=== PATIENT | male | born 1960 | race Caucasian/White ===

== ENCOUNTER 2022-04-11 08:09 | Outpatient (CLI) | payer OTHER, SELFPAY ==
--- NOTE | ~2022-04-11 | CT_ITS ---
EXAMINATION: CT chest high resolution wo co DATE: 04/11/2022 08:30 INDICATION: lung nodule TECHNIQUE: Computed tomography (CT) of the chest was performed without intravenous contrast. Addition al 3D reconstructions utilizing coronal maximum intensity projection (MIP) were performed. Automated exposure control and iterative reconstruction technique were employed. The dose-length product was 33 0.74 mGy-cm. COMPARISON: None FINDINGS: Mild linear discoid atelectasis at the posterior basilar bilateral lower lobes and more anteriorly at the lingula and right middle lobe. 8 x 3 mm flat lenticular intrafissural lymph node along the right minor fissure. There are a few additional scattered small pulmonary nodules, the largest measuring 5 mm in the right upper lobe on series 4, image 62. No pneumonia, pulmonary edema or pleural effusion. Heart size is normal. Atherosclerotic coronary artery calcification and aortic valve calcification. No pericardial effusion. Small sliding-type hiatal hernia. No pathologically enlarged abdominal or pe lvic lymphadenopathy. Moderate thoracic spondylosis. IMPRESSION: 1. Left hip and 3 mm intrafissural lymph node along the right minor fissure and a few scattered bilat eral small pulmonary nodules the largest measuring 5 mm in the right upper lobe. If the patient is lo w risk for lung cancer, no follow-up is needed. If the patient is high risk (i.e., history of smoking or asbestos or significant radiation exposure), optional follow-up low-dose noncontrast chest CT cou ld be considered at 12 months. Reviewed, dictated and finalized at location A. IMPRESSION: 1. Left hip and 3 mm intrafissural lymph node along the right minor fissure and a few scattered bilateral small pulmonary nodules the largest measuring 5 mm i n the right upper lobe. If the patient is low risk for lung cancer, no follow-u p is needed. If the patient is high risk (i.e., history of smoking or asbestos or significant radiation exposure), optional follow-up low-dose noncontrast korina st CT could be considered at 12 months.
== END 2022-04-11 08:10 | disposition home or self-care (01) ==
PROVIDERS: PCP Physician Assistant; Visit Provider Physician Assistant
DX: R91.8 Other nonspecific abnormal finding of lung field (principal); M47.814 Spondylosis without myelopathy or radiculopathy, thoracic region; I70.0 Atherosclerosis of aorta; K44.9 Diaphragmatic hernia without obstruction or gangrene
CPT/HCPCS: 71250

== ENCOUNTER 2023-04-21 00:54 | Day surgery (SDC) | payer MEDICARE, OTHER, SELFPAY ==
[2023-04-12 11:04] VITALS: BMI 30.4
[2023-04-21 11:35] VITALS: BP 131/84; PULSE 59; RESP 18; TEMP 36.1; O2SAT 98; BMI 29.7
[2023-04-21] MEDS: LACTATED RINGERS 1,000 ML 150 ML IV CONT (11:45)
--- NOTE | 2023-04-21 12:38 | P.HP_ITS ---
History of Present Illness History of Present Illness Consent: Risks, benefits, and alternatives have been discussed and questions answered. Patient agrees to proceed with procedure. Chief complaint: positive cologuard test Narrative: Travis Ponce is a 63 year old male Presents for screening colonoscopy. Patient recently found to have positive Cologuard test. Patient's current weight appetite and bowel movements are normal. He denies abdominal pain. Desmond olivares has had no bleeding. Family history noncontributory. Review of Systems Review of Systems: Review of systems noncontributory. [facility] Past Medical History Medical History Bilateral shoulder pain DJD of AC (acromioclavicular) joint Rotator cuff tendonitis Subacromial bursitis Family History Family History Other Cerebrovascular accident Family history of cardiovascular disease Hypertension Social History Social History Smoking packs per day: 1 Smoking cigarettes per day: 20.0 Years smoked: 51 Smoking pack-years: 51.00 Smoking status: Former smoker Tobacco type: cigarettes and e-cigarettes/vaping Second hand tobacco smoke exposure: No Additional smoking assessment comments: CURRENTLY VAPES SINCE 2019 Alcohol intake: current Substance use: current Substance use type: marijuana Other substance usage details: OCC. COUPLE TIMES A MO. Lack of Transportation: YES Lack of Food: Never True Current Housing: I Do Not Have Housing Difficulty Paying Gas/Electric Bills: No Difficulty Paying for Meds: No Education: Decline to Answer Difficulty w/ Childcare or Family Care: Decline to Answer Living arrangements: with family Spiritual care concerns: No Meds Home Medications and Allergies Home Medications Medication Instructions Recorded Confirmed Type diclofenac sodium 75 mg 75 mg PO BID #180 tabs 01/16/23 04/12/23 Rx tablet,delayed release atorvastatin 20 mg tablet 20 mg PO DAILY #90 tabs 01/18/23 04/12/23 Rx esomeprazole magnesium 40 mg 40 mg PO DAILY #90 caps 01/18/23 04/12/23 Rx capsule,delayed release lisinopril 30 mg tablet 30 mg PO DAILY #90 tabs 01/18/23 04/12/23 Rx zolpidem 10 mg tablet 10 mg PO .HS PRN sleep #90 tabs 04/16/23 04/21/23 Rx Allergies Allergy/AdvReac Type Severity Reaction Status Date / Time No Known Allergies Allergy Mild Verified 04/12/23 11:06 Vital Signs Vital Signs - 24 hr 04/21/23 11:35 Temperature 97 F L Pulse Rate 59 L Respiratory Rate 18 Blood Pressure 131/84 Pulse Oximetry 98 Oxygen Delivery Room Air Exam Narrative: Physical exam reveals patient to be alert. Vital signs stable. HEENT exam is unremarkable. Patient is anicteric. Lungs are clear to auscultation and percussion. Heart is without murmur or extra sounds. Abdomen bowel sounds are present soft nontender with no organomegaly. Digital external rectal exam is normal. Assessment and Plan Assessment and plan (1) Positive colorectal cancer screening using Cologuard test: Code(s): R19.5 - Other fecal abnormalities Status: Acute Assessment and Plan: Patient presents for screening colonoscopy recently had positive screening Cologuard test. Further recommendations may be given after endoscopy.
[2023-04-21 12:39] VITALS: BP 94/71; PULSE 64; RESP 21; O2SAT 96
[2023-04-21 12:49] VITALS: BP 125/77; PULSE 63; RESP 15; O2SAT 97
[2023-04-21 12:59] VITALS: BP 124/78; PULSE 69; RESP 20; O2SAT 98
== END 2023-04-21 13:10 | disposition home or self-care (01) ==
PROVIDERS: PCP Physician Assistant; Visit Provider Internal Medicine Gastroenterology
PROC: 0DJD8ZZ Inspection of Lower Intestinal Tract, Via Natural or Artificial Opening Endoscopic (ICD-10-PCS; CPT 45378; principal; 2023-04-21 12:30)
DX: R19.5 Other fecal abnormalities (principal); K63.5 Polyp of colon; K64.8 Other hemorrhoids; K57.30 Diverticulosis of large intestine without perforation or abscess without bleeding; F17.290 Nicotine dependence, other tobacco product, uncomplicated
CPT/HCPCS: 45385; 88305; J2704; J7120

== ENCOUNTER 2024-09-23 13:21 | Outpatient (CLI) | payer MEDICARE, SELFPAY ==
--- NOTE | 2024-09-23 14:03 | ECG_ITS ---
Test Date: 2024-09-23 14:08:31 Measurements Intervals [place] Rate: 61 P: 50 IA: 192 QRS: -7 QRSD: 104 T: 42 QT: 409 QTc: 415 Interpretive Statements SINUS RHYTHM No previous ECG available for comparison Electronically Signed On 09-23-2024 18:04:14 HELPER COORDINATOR by Adela Parra M.D.
== END 2024-09-23 13:22 | disposition home or self-care (01) ==
LOC: ANHLAB 13:25 → ANHCARD 13:40
PROVIDERS: PCP Internal Medicine; Visit Provider Nurse Practitioner Family
DX: I10 Essential (primary) hypertension (principal); R53.83 Other fatigue
CPT/HCPCS: 93005

== ENCOUNTER 2024-10-29 11:48 | Outpatient (CLI) | payer MEDICARE, SELFPAY ==
--- OUTSIDE RECORDS SUMMARY | 2024-10-29 12:14 | XMS_ITS | Continuity of Care Document ---
Author Organization [facility] Address [address] [place] [address] Phone Care Team Providers Care Laborer Cheesemaking Name Role Phone Ricci Burk Unavailable Unavailable Procedures Procedure Date Post-op Follow-up Visit Post-op Follow-up Visit Remove Cataract, Insert Lens Presbyopia Correcting IOL Office/outpatient Visit, New IOLMaster Advance Directives Directive Yes / No Effective Date File Name No Information Encounters Encounter Description Practice Location Reason(s) For Visit Diagnoses Date Provider Providers Copied on Encounter [facility], [address], [place], [place], [id number], tel:[phone] [facility] No Information 0 Bhargavi Edmian. [address] , [address], [place], [place], [facility], . tel:[phone] Referring Provider: Christin Turcios OD, [address] [place] [address], [place], [address]. tel:[phone] [facility], [address], [place], [place], [id number], tel:[phone] [facility] No Information 0 Prabhusy Edmian. [address], [place], [place], [facility], . tel:[phone] Referring Provider: Christin Turcios OD, [address], [place], [address]. tel:[phone] [facility], [address], [place], [place], [id number], tel:[phone] [facility] No Information 0 Bhargavi Edmian. [address] , [address], [place], [place], [facility], . tel:[phone] Referring Provider: Christin Turcios OD, [address], [place], [address]. tel:[phone] Office/outpat ient Visit, [facility], [address], [place], [place], [id number], tel:[phone] [facility] No Information 0 Bhargavi Wynne. [facility] [facility] [facility] , [address], [place], [place], [facility], . tel:[phone] Referring Provider: Christin Turcios OD, [address], [place], [address]. tel:[phone] Family History Family Member Type Diagnosis Age At Onset No Information Payers Payer name Insurance type Covered alliance party ID Authoriza tion(s) No Information Social History Type Description Quantity Date Captured Comments Sex Male Smoking Status No Information Chief Complaint And Reason For Visit No Information Reason For Referral Reason For Referral No Information History Of Present Illness Encounter Date Complaint History Of Prese nt Illness No Information Functional Status Date Functional Assessmen t No Information Instructions Date Instruction Additional Infor mation No Information Assessments Type Assessment Date No Information Patient Care Teams Name Effective Dates (start - stop) Status Members No Information
[2024-10-29 13:31] LABS: Basophils Absolute Auto 0.1 K/mm3 (0.0-0.1); Basophils Percent Auto 0.8 % (0.2-1.2); Eosinophils Absolute Auto 0.4 K/mm3 (0-0.3); Eosinophils Percent Auto 5.9 % (0-4.4); Hematocrit 42.6 % (42.0-52.0); Hemoglobin 14.5 g/dL (14.0-18.0); Immature Granulocyte Absolute 0.03 K/mm3 (0.00-0.031); Immature Granulocyte Percent A 0.4 % (0-0.5); Lymphocytes Absolute Auto 2.12 K/mm3 (0.9-3.2); Lymphocytes Percent Auto 29.9 % (18.3-44.2); Mean Corpuscular Hemoglobin 31.2 pg (26-34); Mean Corpuscular Volume 91.6 fl (80-100); Mean Platelet Volume 11.9 fl (7.4-10.4); Monocytes Absolute Auto 0.8 K/mm3 (0.1-0.6); Monocytes Percent Auto 11.4 % (2.6-8.5); Neutrophils Absolute Auto 3.7 K/mm3 (1.3-6.7); Neutrophils Percent Auto 51.6 % (45.5-73.1); Platelet Count Result 211 k/mm3 (150-375); Red Blood Count 4.65 M/mm3 (4.6-6.20); Red Cell Distribution Width 12.4 % (11.5-14.5); White Blood Count 7.1 K/mm3 (4.5-10.0)
[2024-10-29 14:00] LABS: INR 0.9; Partial Thromboplastin Time 30.9 Seconds (22.3-36.8); Prothrombin Time 12.9 Seconds (11.1-14.7)
[2024-10-29 14:09] LABS: Add Urine Microscopic? YES; Appearance Urine Clear (Clear); Bacteria Urine None Seen /hpf; Bilirubin Urine Negative (Negative); Blood Urine Negative (Negative); Color Urine Yellow (Yellow); Glucose Urine UA Negative (Negative); Ketones Urine Negative (Negative); Leukocyte Esterase Ur Trace LEU/UL (Negative); Nitrate Urine Negative (Negative); Non Pathogenic Casts 0-2; Protein Urine Negative (Negative); RBC Urine 0-2 /hpf (0-2); Specific Grav Ur 1.019 (1.001-1.035); Squamous Epithelial Cell Urine None Seen /hpf (Few); WBC Urine 0-5 /hpf (0-3); pH Urine 6.5 (5.0-9.0)
[2024-10-29 14:27] LABS: Urine Cotinine NEGATIVE
[2024-10-29 15:01] LABS: MRSA (PCR) NOT DETECTED (NOT DETECTE)
[2024-10-29 16:39] LABS: Albumin Level 4.4 g/dL (3.5-5.1); Anion Gap 9 mmol/L (4-12); Blood Urea Nitrogen 16 mg/dL (9-20); Calcium 9.8 mg/dL (8.4-10.2); Carbon Dioxide 26 mmol/L (22-30); Chloride 106 mmol/L (98-107); Estimated Glomerular Filt Rate > 60; Glucose 93 mg/dL (65-110); Sodium 141 mmol/L (137-145)
[2024-10-29 21:18] LABS: Hemoglobin A1C 5.7 % (<5.7)
== END 2024-10-29 11:49 | disposition home or self-care (01) ==
LOC: ANHSURGERY 11:58
PROVIDERS: PCP Internal Medicine; Visit Provider Orthopaedic Surgery
DX: Z01.818 Encounter for other preprocedural examination (principal); M17.11 Unilateral primary osteoarthritis, right knee
CPT/HCPCS: 80048; 80307; 81001; 82040; 83036; 85025; 85610; 85730; 87641

== ENCOUNTER 2024-11-12 00:39 | Day surgery (SDC) | payer MEDICARE, SELFPAY ==
[2024-10-29 12:00] VITALS: BP 170/109
[2024-10-29 12:08] VITALS: BP 167/90; PULSE 66; RESP 16; TEMP 36.6; O2SAT 98; BMI 33.0
--- NOTE | 2024-10-29 12:26 | PC.NURSE ---
Addendum entered by Parris Torrez RN 10/29/24 13:11: BP CALLED TO DR MARTIN'S OFFICE, 170/109 AND 167/90. PT TOOK LISINOPRIL LAST NIGHT ORDERED, BUT HAD BEEN WITHOUT IT FOR 5-6 DAYS PRIOR. STATES HE HAD BEEN TRYING TO GET A REFILL, BUT IT WAS DELAYED. DENIES ANY CARDIOVASC SYMPTOMS. INSTR TO GO TO ER WITH CHEST PAIN, DIZZINESS, SOB. HE RELAYS UNDERSTANDING. DR BAILEY'S OFFICE ALSO INFORMED OF HYPERTENSION. DR MARTIN WILL F/U WITH PATIENT. Original Note: Report to the Outpatient Waiting Room, entrance under the green pavilion [facility], at time ___8:30AM____ on date __11/12/24 . Planned Procedure Time: __10:30AM .? Time changes happen often and if your time is changed the preop area will call you the afternoon before. - You and your visitor will be asked to self-screen and do not enter if you have any COVID symptoms. Please call surgeon if you need to reschedule. - A mask is optional within the hospital at this time. Patients may have clear liquids (water, carbonated beverages, clear teas, apple juice) until 3 hours prior to surgery (7:30AM) with a maximum of 20 ounces. - No food from midnight until time of surgery and no smoking, or chewing Tabacco (or any form of nicotine). No chewing gum, candy or mints. Take only the following medications with a SIP of water on the morning of surgery: NONE DO NOT STOP ANY OF YOUR OTHER PRESCRIPTION MEDICATIONS PRIOR TO SURGERY EXCEPT THE FOLLOWING Medications to discontinue per physician HOLD DICLOFENAC 7 DAYS PRE-OP PER DR BAILEY Date to take last dose 11/04/24 Please no make-up, nail vatican citizen, hairspray, perfume, deodorant, or body powder the day of surgery.? No jewelry (including any body piercings) or valuables the day of surgery, leave them at home.? Please take a shower or bath the night before, or the morning of, surgery with an antibacterial soap.? Wear comfortable, loose fitting clothing.? - Jewelry must be removed prior to entering the operating room.? Rings and piercings that are not removed may be cut off. - The hospital will not accept responsibility for valuables.? - Please leave all valuables, including medications, at home the day of surgery. If you are going home after surgery, a licensed regional driver must drive you home.? - NO public transportation without another adult if you receive anesthesia. - We recommend that an adult stay with you for 24 hours following discharge. - We also recommend that you do not drive, make important decision, drink alcoholic beverages, or take any drugs that were not prescribed by your health care provider for at least 24 hours after your discharge time. Hold all vitamins and supplements for 3 days per anesthesiologist. Follow any additional instructions given to you from your surgeon. Telephone instructions given to _PATIENT and asked if any additional questions and then verbalized understanding. Patient advised to call surgeon office or pre surgery nurse liaison [phone] if any additional questions.
--- NOTE | 2024-11-11 15:44 | WPDANESEPPF ---
Anes - Initial Pre Proc Eval Procedure: Operation Date: 11/12/24 07:30 Proposed Procedures p Right Total Knee Arthroplasty - Julio Nelson MD Date/Time: 11/11/24 15:44 Surgeon: Julio Nelson MD Pre Op Diagnosis: Rt Knee O.A. Patient Data Age: 64 Gender: M Height: 1.85 m Weight: 113.7 kg Last Vital Signs Temp 36.6 C 10/29/24 12:08 Pulse 66 10/29/24 12:08 Resp 16 10/29/24 12:08 BP 167/90 H 10/29/24 12:08 Pulse Ox 98 10/29/24 12:08 O2 Del Method Room Air 10/29/24 12:08 Allergies Allergy/AdvReac Type Severity Reaction Status Date / Time No Known Allergies Allergy Mild Verified 11/12/24 06:18 Home Medications ?Medication ?Instructions ?Recorded ?Confirmed ?Type diclofenac sodium 75 mg 75 mg PO BID #180 tabs 08/23/24 11/12/24 Rx tablet,delayed release esomeprazole magnesium 40 mg 40 mg PO DAILY #90 caps 08/23/24 11/12/24 Rx capsule,delayed release atorvastatin 20 mg tablet 20 mg PO DAILY #90 tabs 10/23/24 11/12/24 Rx chlorhexidine gluconate 4 % 1 applic topical ONCE #237 mL 10/29/24 11/04/24 Rx topical liquid (Hibiclens) lisinopril 40 mg tablet 40 mg PO DAILY #90 tabs 10/30/24 11/12/24 Rx zolpidem 10 mg tablet 10 mg PO .HS PRN sleep #90 tabs 11/07/24 11/12/24 Rx Patient hx anesthesia problems: none Family hx anesthesia problems: none Results Review: All pre-operative results and documents have been reviewed as part of the pre-operative evaluation. [facility] Past Medical History Medical History Heel bone fracture Tobacco abuse Tendinitis of left rotator cuff Primary osteoarthritis, left shoulder Primary insomnia Pain in left shoulder Other chronic pain Hyperlipidemia, mixed Foot pain, right Essential hypertension Encounter for screening colonoscopy Chronic pain of both shoulders Chronic GERD Bursitis of right shoulder Bilateral shoulder region arthritis Alcohol consumption binge drinking Effusion of knee joint Degenerative joint disease of knee Right knee pain Left knee pain Subacromial bursitis Rotator cuff tendonitis DJD of AC (acromioclavicular) joint Bilateral shoulder pain Family History Family History Father , cancer No problems noted. Mother Acute myocardial infarction Sibling Acute myocardial infarction Other Cerebrovascular accident Family history of cardiovascular disease Hypertension Social History Social History Smoking packs per day: 1 Smoking cigarettes per day: 20.0 Years smoked: 51 Smoking pack-years: 51.00 Smoking status: Former smoker Tobacco type: cigarettes and e-cigarettes/vaping Second hand tobacco smoke exposure: No Smoking end date: 03/25/21 Additional smoking assessment comments: CURRENTLY VAPES SINCE 2019 Alcohol intake: current Substance use: current Substance use type: marijuana Other substance usage details: OCC. COUPLE TIMES A MO. Do You Feel Safe in your Home?: Yes Lack of Transportation: YES Lack of Food: Never True Current Housing: I Have Housing Difficulty Paying Gas/Electric Bills: No Difficulty Paying for Meds: No Currently Unemployed: No Education: Decline to Answer Difficulty w/ Childcare or Family Care: Decline to Answer Living arrangements: with family Additional living arrangements comments: Occupation/Education: retired Additional occupation/education comments: [employer]-45 years Gender identity (if verbalized by the patient): Male Spiritual care concerns: No Anes - Eval Final PreProcedure Day of Procedure 11/11/24 15:44 Patient weight: obese Heart: regular rate and rhythm Lungs: clear to auscultation Airway: Mallampati scale class II Neurological: alert and oriented Last oral intake: >/= 8 hours ASA classification: III Emergent: no Anesthetic plan: proceed Anesthesia type and monitoring: general LMA and standard monitoring Results Review: All pre-operative results and documents have been reviewed as part of the pre-operative evaluation. Informed Consent: The patient's anesthetic plan and its attendant risks and benefits were discussed with the patient/family/POA. Questions were solicited and answers provided to the satisfaction of the patient/family/POA.
[2024-11-12] VITALS (15 sets, daily range): BP systolic 122–147; BP diastolic 74–89; PULSE 77–95; RESP 12–16; TEMP 36.6–36.9; O2SAT 93–97; BMI 32.1
--- NOTE | ~2024-11-12 | XR_ITS ---
EXAMINATION: [id number] DATE: 11/12/2024 10:06 INDICATION: Postoperative evaluation following right total knee arthroplasty. TECHNIQUE: Anteroposterior and lateral views of the right knee were obtained. COMPARISON: None. FINDINGS: Right total knee arthroplasty without patellar resurfacing appears well seated and in near anatomic a lignment. No fractures identified. Expected postoperative subcutaneous, intramedullary and intra-art icular gas. IMPRESSION: 1. Right total knee arthroplasty, negative for postoperative purposes. Reviewed, dictated and finalized at location A. WINDER
--- OUTSIDE RECORDS SUMMARY | 2024-11-12 00:42 | XMS_ITS | Continuity of Care Document ---
Author Organization [facility] Address [address] [place] [address] Phone Care Team Providers Care Licensed Marine Engineer Name Role Phone Ricci Burk Unavailable Unavailable Procedures Procedure Date Post-op Follow-up Visit Post-op Follow-up Visit Remove Cataract, Insert Lens Presbyopia Correcting IOL Office/outpatient Visit, New IOLMaster Advance Directives Directive Yes / No Effective Date File Name No Information Encounters Encounter Description Practice Location Reason(s) For Visit Diagnoses Date Provider Providers Copied on Encounter [facility], [address], [place], [place], [id number], tel:[phone] [facility] No Information 0 Bhargavi Edmian. [address] , [address], [place], [place], [facility], . tel:[phone] Referring Provider: Christin Turcios OD, [address] [place] [address], [place], [address]. tel:[phone] [facility], [address], [place], [place], [id number], tel:[phone] [facility] No Information 0 Prabhusy Edmian. [address], [place], [place], [facility], . tel:[phone] Referring Provider: Christin Turcios OD, [address], [place], [address]. tel:[phone] [facility], [address], [place], [place], [address], tel:[phone] [facility] No Information 0 Bhargavi Edmian. [address] , [address], [place], [place], [facility], . tel:[phone] Referring Provider: Christin Turcios OD, [address], [place], [address]. tel:[phone] Office/outpat ient Visit, [facility], [address], [place], [place], [id number], tel:[phone] [facility] No Information 0 Bhargavi Wynne. [facility] [address] , [address], [place], [place], [facility], . tel:[phone] Referring Provider: Christin Turcios OD, [address], [place], [address]. tel:[phone] Family History Family Member Type Diagnosis Age At Onset No Information Payers Payer name Insurance type Covered green party ID Authoriza tion(s) No Information Social [...]
[2024-11-12] MEDS: LACTATED RINGERS 1,000 ML 30 ML IV CONT ×2 (06:35→09:53)
[2024-11-12] MEDS: ACETAMINOPHEN 500 MG TABLET 1000 MG PO (06:41)
[2024-11-12] MEDS: TRANEXAMIC ACID 1,000MG/ISO100 1,000 MG/100 ML BAG 200 MG IVPB (06:57)
--- NOTE | 2024-11-12 07:22 | WPDHPUPDATE1 ---
History and Physical Update Update Date/Time: 11/12/24 07:22 History and Physical has been reviewed, including an updated exam of the patient. There are NO changes in the patient's condition. Risks, benefits, and alternatives have been discussed and questions answered. Patient agrees to proceed with procedure.
[2024-11-12] MEDS: ceFAZolin 2 GM/D5W 50 ML 2 GM/50 ML BAG IVPB (07:36)
--- NOTE | 2024-11-12 07:44 | WPDANESPNB ---
Anes - Peripheral Nerve Block Date/Time: 11/12/24 07:44 I have discussed with the patient/family/POA the placement of a peripheral nerve block for post-operative pain management, including associated risks, benefits, complications, and side effects. Alternative methods of post-operative analgesia were detailed. Questions were solicited and answers provided to the satisfaction of the patient/family/POA. Time-Out: A pre-procedural Time-Out was completed immediately before starting the procedure and confirmed: Patient Identification, Site, Procedure, Patient Position and the Availability of Requisite Equipment. Clinical Indications: Acute post-operative pain management requested by the operative surgeon. Nerve Block Insertion Note Anes-nerve block: adductor canal right Patient position: supine Skin prep: chlorhexidine Needle: 22 gauge, stimulating, insulated echogenic needle. Needle length: 80 mm Technique: ultrasound Injectate: bupivacaine 0.5% with epi 5 mcg/ml (30cc - no epi) Observations: tolerated well Complications: none Procedure start time:: 727 Procedure end time:: 730
[2024-11-12] MEDS: SODIUM CHLORIDE 0.9% IV 37.7 ML, MORPHINE SULFATE INJ (*CRX) 2 MG, ROPivacaine HCL 1% 2... INFILTRATE (08:21)
[2024-11-12] MEDS: TRANEXAMIC ACID 1,000 MG/10 ML AMPUL 1000 MG IV PUSH (09:02)
--- NOTE | 2024-11-12 09:47 | P.OP_ITS ---
Procedure Note - Detailed Date of Procedure 11/12/24 Pre-op Diagnosis Rt Knee O.A. Post-op Diagnosis Same Procedure Performed R TKA Surgeon Julio Nelson MD Anesthesia General Description of Procedure THE RIGHT KNEE WAS PREPPED AND DRAPED IN THE STERILE FASHION. THERE WAS A 10 DEGREE FLEXION CONTRACTURE. A MIDLINE SKIN INCISION WAS MADE. A MEDIAL PARAPATELLAR ARTHROTOMY WAS MADE. THE PATELLA WAS EVERTED. THERE WAS TRICOMPARTMENT DJD. THERE WAS MINIMAL PATELLA DJD. AN INTRAMEDULLARY ELVIA WAS PLACED IN THE FEMUR. A DISTAL FEMORAL CUT WAS MADE IN 5 DEGREES OF VALGUS REMOVING APPROXIMATELY 9 MM OF BONE FROM THE DISTAL FEMUR. THE FEMUR WAS SIZED TO 72.5. A 72.5 FEMORAL CUTTING BLOCK WAS PLACED IN 3 DEGREES OF EXTERNAL ROTATION AND IN ALIGNMENT WITH JERRY'S LINE AND THE TRANSEPICONDYLAR AXIS. ANTERIOR POSTERIOR AND CHAMFER CUTS WERE MADE. THE CUTS WERE EXCELLENT. NEXT AN INTRAMEDULLARY CUTTING GUIDE WAS PLACED IN THE TIBIA. A TRANS TIBIAL CUT WAS MADE ALONG THE LONG AXIS OF THE TIBIA. APPROXIMATELY 10 MM OF BONE WAS REMOVED FROM THE HIGH SIDE OF THE TIBIA. THE TIBIA WAS THEN PLANED TO A SMOOTH SURFACE. POSTERIOR FEMORAL OSTEOPHYTES WERE REMOVED FROM THE FEMORAL CONDYLES. A 79 TIBIAL TRIAL WAS PLACED IN ALIGNMENT WITH THE 1/3 MEDIAL ASPECT OF THE TIBIAL TUBERCLE. THEN A 72.5 FEMORAL TRIAL COMPONENT WAS PLACED. BOTH HAD EXCELLENT FITS. EVENTUALLY A 10 MM CR POLYETHYLENE TRIAL COMPONENT WAS PLACED. THE KNEE WAS TAKEN THROUGH A RANGE OF MOTION. THE KNEE CAME OUT TO FULL EXTENSION. THERE WAS NO ABNORMAL TILT TO THE PATELLA. THERE WAS GOOD A/P AND VARUS/VALGUS STABILITY. THERE WAS NO EXCESSIVE ROLL BACK WITH FLEXION. THE TRIAL COMPONENTS WERE REMOVED. THEN A 72.5 FEMORAL COMPONENT AND 79 TIBIAL COMPONENT WITH A 10 CR POLYETHYLENE COMPONENT WERE CEMENTED INTO PLACE. ONCE THE CEMENT WAS HARD THE KNEE WAS TAKEN THROUGH A ROM AGAIN AND FOUND TO BE STABLE WITH NO PATELLA TILT NO EXCESSIVE ROLL BACK WITH FLEXION AND GOOD STABILITY WITH COMPLETE AND FULL EXTENSION. THE KNEE WAS IRRIGATED WITH STERILE BETADINE AND WATER FOR ABOUT 3 MINUTES. THE BLEEDERS WERE CAUTERIZED. THE ARTHROTOMY WAS REPAIRED WITH NUMBER 1 VICRYL. THE SUB CUTANEOUS LAYER WITH 2-0 VICRYL AND THE SKIN WITH 3-O STRATAFIX AND DERMABOND. THE WOUND WAS WASHED AND A STERILE DRESSING WAS APPLI ED. PATIENT WAS EXTUBATED. Estimated Blood Loss -150.0 Pathology None sent Complications No immediate complications Condition Stable Disposition PACU
[2024-11-12] MEDS: fentaNYL CITRATE INJ (*CRX) 100 MCG/2 ML VIAL 25 MCG IV PUSH ×8 (10:07→11:02)
[2024-11-12] MEDS: oxyCODONE HCL (*CRX) 5 MG TAB IR PO (10:48)
--- NOTE | 2024-11-12 12:15 | PCCCNOTE ---
Spoke with pt in outpatient surgery regarding his discharge with [facility]. He was aware of this and did not have any further questions. I explained to him that it would be on his D/C paperwork, along with the phone number should he need to contact them.
[2024-11-12] MEDS: KETOROLAC 30 MG/ML VIAL (*BKC) IV PUSH (12:16)
--- NOTE | 2024-11-12 14:49 | SUR.PHASEII ---
1445: patient dressed. worked with pt/ot. Dr. Nelson spoke with patient and . ready for dc.
== END 2024-11-12 15:15 | disposition home health service (06) ==
PROVIDERS: PCP Internal Medicine; Visit Provider Orthopaedic Surgery
PROC: (CPT 27447; principal; 2024-11-12 07:30)
DX: M17.11 Unilateral primary osteoarthritis, right knee (principal); M25.761 Osteophyte, right knee; G89.18 Other acute postprocedural pain; E78.5 Hyperlipidemia, unspecified; I10 Essential (primary) hypertension; K21.9 Gastro-esophageal reflux disease without esophagitis; M19.012 Primary osteoarthritis, left shoulder; G47.00 Insomnia, unspecified; G89.29 Other chronic pain; M25.512 Pain in left shoulder; M25.511 Pain in right shoulder; F17.290 Nicotine dependence, other tobacco product, uncomplicated; E66.9 Obesity, unspecified; Z68.32 Body mass index [BMI] 32.0-32.9, adult; Z80.9 Family history of malignant neoplasm, unspecified; Z82.49 Family history of ischemic heart disease and other diseases of the circulatory system
CPT/HCPCS: 64447; 27447; 36415; 73560; 86850; 86900; 86901; 97110; 97161; 97165; A9270; C1713; J0171; J0690; J1100; J1171; J1885; J2003; J2250; J2270; J2405; J2704; J2795; J3010; J3370; J7120

== ENCOUNTER 2025-08-14 11:46 | Outpatient (CLI) | payer MEDICARE, SELFPAY ==
[2025-08-14 13:31] LABS: Albumin Level 4.6 g/dL (3.5-5.1)
[2025-08-14 13:40] LABS: INR 1.0; Prothrombin Time 12.9 Seconds (11.1-14.7)
[2025-08-14 13:41] LABS: Partial Thromboplastin Time 32.1 Seconds (22.3-36.8)
[2025-08-14 14:35] LABS: MRSA (PCR) NOT DETECTED (NOT DETECTE)
[2025-08-14 16:23] LABS: Hemoglobin A1C 5.8 % (<5.7)
== END 2025-08-14 11:47 | disposition home or self-care (01) ==
LOC: ANHSURGERY 11:52
PROVIDERS: PCP Internal Medicine; Visit Provider Orthopaedic Surgery
DX: Z01.812 Encounter for preprocedural laboratory examination (principal); M17.12 Unilateral primary osteoarthritis, left knee
CPT/HCPCS: 80307; 82040; 83036; 85610; 85730; 86850; 86900; 86901; 87641

== ENCOUNTER 2025-08-27 01:10 | Day surgery (SDC) | payer MEDICARE, SELFPAY ==
--- NOTE | 2025-08-14 11:51 | PC.NURSE ---
[facility] has started construction of its new state of the art ER which will open Spring 2026. With this, we anticipate parking may be a challenge for some our surgical patients and families. Parking spaces are limited but are available for all Surgical, obstetrics, and ER patients sharing this lot. If you arrive and find you are having a hard time finding a parking space, please note that we understand the challenges, please drive around the hospital and park near Hospital Entrance 1. When you enter this entrance, you can ask a volunteer to direct or take you back to the surgical waiting area to check in. We appreciate everyone?s understanding of these expected challenges while we build for your future. Report to the Outpatient Waiting Room, entrance under the green pavilion located off [address], at time _8:30 AM on date _08/27/25 . Planned Procedure Time: _10:30 AM .? Time changes happen often and if your time is changed the preop area will call you the afternoon before. - You and your visitor will be asked to self-screen and do not enter if you have any COVID symptoms. Please call surgeon if you need to reschedule. - A mask is optional within the hospital at this time. Patients may have clear liquids (water, carbonated beverages, clear teas, apple juice) until 3 hours prior to surgery( 7:30 AM) with a maximum of 20 ounces. - No food from midnight until time of surgery and no smoking, or chewing tobacco (or any form of nicotine). No chewing gum, candy or mints. - Take only the following medications with a SIP of water on the morning of surgery: NONE DO NOT STOP ANY OF YOUR OTHER PRESCRIPTION MEDICATIONS PRIOR TO SURGERY EXCEPT THE FOLLOWING Hold all vitamins and supplements for 3 days per anesthesiologist. Medications to discontinue per physician NONE Date to take last dose Please no make-up, nail arabic, hairspray, perfume, deodorant, or body powder the day of surgery.? No jewelry (including any body piercings) or valuables the day of surgery, leave them at home.? Please take a shower or bath the night before, or the morning of, surgery with an antibacterial soap.? Wear comfortable, loose fitting clothing.? Children are encouraged to wear pajamas. - Jewelry must be removed prior to entering the operating room.? Rings and piercings that are not removed may be cut off. - The hospital will not accept responsibility for valuables.? - Please leave all valuables, including medications, at home the day of surgery. If you are going home after surgery, a licensed wheelchair van driver must drive you home.? - NO public transportation without another adult if you receive anesthesia. - We recommend that an adult stay with you for 24 hours following discharge. - We also recommend that you do not drive, make important decision, drink alcoholic beverages, or take any drugs that were not prescribed by your health care provider for at least 24 hours after your discharge time. For Pediatric surgeries, we recommend two adults accompany the child home. Follow any additional instructions given to you from your surgeon. VERBAL AND WRITTEN instructions given to __PATIENT and asked if any additional questions and then verbalized understanding. Patient advised to call surgeon office or pre surgery nurse liaison [phone] if any additional questions.
[2025-08-14 11:55] VITALS: BMI 33.4
[2025-08-14 12:50] VITALS: BP 173/93; PULSE 66; RESP 18; TEMP 36.9; O2SAT 98
[2025-08-27] VITALS (14 sets, daily range): BP systolic 121–160; BP diastolic 76–100; PULSE 68–101; RESP 13–143; TEMP 35.7–36.7; O2SAT 95–100
--- NOTE | ~2025-08-27 | XR_ITS ---
EXAMINATION: [id number] DATE: 08/27/2025 13:49 INDICATION: Postoperative evaluation following left total knee arthroplasty. TECHNIQUE: Anteroposterior and lateral views of the left knee were obtained. COMPARISON: None. FINDINGS: Left total knee arthroplasty without patellar resurfacing appears well seated and in near anatomic alignment. No fractures identified. Expected postoperative subcutaneous and intra-articular gas. IMPRESSION: 1. Left total knee arthroplasty, negative for postoperative purposes. Reviewed, dictated and finalized at location A. [facility]
--- NOTE | 2025-08-27 07:23 | WPDHPUPDATE1 ---
History and Physical Update Update Date/Time: 08/27/25 07:23 History and Physical has been reviewed, including an updated exam of the patient. There are NO changes in the patient's condition. Risks, benefits, and alternatives have been discussed and questions answered. Patient agrees to proceed with procedure.
[2025-08-27] MEDS: ACETAMINOPHEN 500 MG TABLET 1000 MG PO (09:08)
[2025-08-27] MEDS: TRANEXAMIC ACID 1,000MG/ISO100 1,000 MG/100 ML BAG 200 MG IVPB (09:08)
--- NOTE | 2025-08-27 09:58 | WPDANESEPPF ---
Anes - Initial Pre Proc Eval Procedure: Operation Date: 08/27/25 10:30 Proposed Procedures p Left Total Knee Arthroplasty - Julio Nelson MD Date/Time: 08/27/25 09:58 Surgeon: Julio Nelson MD Pre Op Diagnosis: left knee DJD Patient Data Age: 65 Gender: M Height: 1.85 m Weight: 115 kg Last Vital Signs Temp 98.0 F 08/27/25 09:10 Pulse 68 08/27/25 09:10 Resp 16 08/27/25 09:10 BP 150/85 H 08/27/25 09:10 Pulse Ox 100 08/27/25 09:10 O2 Del Method Room Air 08/27/25 09:10 Allergies Allergy/AdvReac Type Severity Reaction Status Date / Time No Known Allergies Allergy Mild Verified 08/18/25 10:05 Home Medications ?Medication ?Instructions ?Recorded ?Confirmed ?Type atorvastatin 20 mg tablet 20 mg PO DAILY #90 tabs 07/18/25 08/14/25 Rx esomeprazole magnesium 40 mg 40 mg PO DAILY #90 caps 07/18/25 08/14/25 Rx capsule,delayed release lisinopril 40 mg tablet 40 mg PO DAILY #90 tabs 07/18/25 08/14/25 Rx zolpidem 10 mg tablet 10 mg PO QHS #90 tabs 08/08/25 08/14/25 Rx chlorhexidine gluconate 4 % 1 applic topical ONCE #237 mL 08/20/25 Rx topical liquid (Hibiclens) Laboratory Tests 08/27/25 08:34 Blood Type O Positive Antibody Screen Pending Patient hx anesthesia problems: none Family hx anesthesia problems: none Results Review: All pre-operative results and documents have been reviewed as part of the pre-operative evaluation. [facility] Past Medical History Medical History Heel bone fracture Tobacco abuse Tendinitis of left rotator cuff Primary osteoarthritis, left shoulder Primary insomnia Pain in left shoulder Other chronic pain Hyperlipidemia, mixed Foot pain, right Essential hypertension Encounter for screening colonoscopy Chronic pain of both shoulders Chronic GERD Bursitis of right shoulder Bilateral shoulder region arthritis Alcohol consumption binge drinking Effusion of knee joint Degenerative joint disease of knee Right knee pain Left knee pain Subacromial bursitis Rotator cuff tendonitis DJD of AC (acromioclavicular) joint Bilateral shoulder pain Family History Family History Father , cancer No problems noted. Mother Acute myocardial infarction Sibling Acute myocardial infarction Other Cerebrovascular accident Family history of cardiovascular disease Hypertension Social History Social History Smoking packs per day: 1 Smoking cigarettes per day: 20.0 Years smoked: 51 Smoking pack-years: 51.00 Smoking status: Former smoker Tobacco type: cigarettes and e-cigarettes/vaping Second hand tobacco smoke exposure: No Smoking end date: 03/25/21 Additional smoking assessment comments: CURRENTLY VAPES SINCE 2019 Alcohol intake: current Alcohol use details: 5 DRINKS-EVERY 6 MONTHS Substance use: current Substance use type: marijuana Other substance usage details: OCC. COUPLE TIMES A MO. Last use: 08/07/25 FOR INSOMNIA Lack of Transportation: YES Lack of Food: Never True Current Housing: I Have Housing Difficulty Paying Gas/Electric Bills: No Difficulty Paying for Meds: No Currently Unemployed: No Education: Decline to Answer Difficulty w/ Childcare or Family Care: Decline to Answer Living arrangements: with family Additional living arrangements comments: Occupation/Education: retired Additional occupation/education comments: [employer]-45 years Gender identity (if verbalized by the patient): Male Spiritual care concerns: No Anes - Eval Final PreProcedure Day of Procedure 08/27/25 09:58 Patient weight: obese Lungs: normal air movement Airway: Mallampati scale class II Neurological: alert and oriented Last oral intake: >/= 8 hours ASA classification: III Emergent: no Anesthetic plan: proceed Anesthesia type and monitoring: general ETT and standard monitoring Results Review: All pre-operative results and documents have been reviewed as part of the pre-operative evaluation. HTN, hyperlipidemia, smoker 50 pack years, vapes. EKG w NSR. Informed Consent: The patient's anesthetic plan and its attendant risks and benefits were discussed with the patient/family/POA. Questions were solicited and answers provided to the satisfaction of the patient/family/POA.
--- NOTE | 2025-08-27 10:57 | WPDANESPNB ---
Anes - Peripheral Nerve Block Date/Time: 08/27/25 10:57 I have discussed with the patient/family/POA the placement of a peripheral nerve block for post-operative pain management, including associated risks, benefits, complications, and side effects. Alternative methods of post-operative analgesia were detailed. Questions were solicited and answers provided to the satisfaction of the patient/family/POA. Time-Out: A pre-procedural Time-Out was completed immediately before starting the procedure and confirmed: Patient Identification, Site, Procedure, Patient Position and the Availability of Requisite Equipment. Clinical Indications: Acute post-operative pain management requested by the operative surgeon. Nerve Block Insertion Note Anes-nerve block: adductor canal left Patient position: supine Skin prep: chlorhexidine Needle: 22 gauge, stimulating, insulated echogenic needle. Needle length: 80 mm Technique: ultrasound Injectate: other (Bupiv 0.5% 15 mls. ) Observations: tolerated well Procedure start time:: 1110 Procedure end time:: 111
[2025-08-27] MEDS: ceFAZolin 2 GM in SODIUM CHLORIDE 0.9% IV 50 ML 100 ML IVPB ×2 (11:33→20:19)
[2025-08-27] MEDS: SODIUM CHLORIDE 0.9% IV 37.7 ML, MORPHINE SULFATE INJ (*CRX) 2 MG, ROPivacaine HCL 1% 2... INFILTRATE (11:51)
[2025-08-27] MEDS: TRANEXAMIC ACID 1,000 MG/10 ML AMPUL 1000 MG IV PUSH (12:51)
--- NOTE | 2025-08-27 13:23 | P.OP_ITS ---
Procedure Note - Detailed Date of Procedure 08/27/25 Pre-op Diagnosis left knee DJD Post-op Diagnosis Same Procedure Performed LEFT TKA Surgeon Julio Nelson MD Anesthesia General Description of Procedure THE LEFT KNEE WAS PREPPED AND DRAPED IN THE STERILE FASHION. THERE WAS A 15 DEGREE FLEXION CONTRACTURE. A MIDLINE SKIN INCISION WAS MADE. A MEDIAL PARAPATELLAR ARTHROTOMY WAS MADE. THE PATELLA WAS EVERTED. THERE WAS TRICOMPARTMENT DJD. THERE WAS MINIMAL PATELLA DJD. AN INTRAMEDULLARY ELVIA WAS PLACED IN THE FEMUR. A DISTAL FEMORAL CUT WAS MADE IN 5 DEGREES OF VALGUS REMOVING APPROXIMATELY 9 MM OF BONE FROM THE DISTAL FEMUR. THE FEMUR WAS SIZED TO 72.5. A 72.5 FEMORAL CUTTING BLOCK WAS PLACED IN 3 DEGREES OF EXTERNAL ROTATION AND IN ALIGNMENT WITH JERRY'S LINE AND THE TRANSEPICONDYLAR AXIS. ANTERIOR POSTERIOR AND CHAMFER CUTS WERE MADE. THE CUTS WERE EXCELLENT. NEXT AN INTRAMEDULLARY CUTTING GUIDE WAS PLACED IN THE TIBIA. A TRANS TIBIAL CUT WAS MADE ALONG THE LONG AXIS OF THE TIBIA. APPROXIMATELY 10 MM OF BONE WAS REMOVED FROM THE HIGH SIDE OF THE TIBIA. THE TIBIA WAS THEN PLANED TO A SMOOTH SURFACE. POSTERIOR FEMORAL OSTEOPHYTES WERE REMOVED FROM THE FEMORAL CONDYLES. A 79 TIBIAL TRIAL WAS PLACED IN ALIGNMENT WITH THE 1/3 MEDIAL ASPECT OF THE TIBIAL TUBERCLE. THEN A 72.5 FEMORAL TRIAL COMPONENT WAS PLACED. BOTH HAD EXCELLENT FITS. EVENTUALLY A 10 MM POLYETHYLENE TRIAL COMPONENT WAS PLACED. THE KNEE WAS TAKEN THROUGH A RANGE OF MOTION. THE KNEE CAME OUT TO FULL EXTENSION. THERE WAS NO ABNORMAL TILT TO THE PATELLA. THERE WAS GOOD A/P AND VARUS/VALGUS STABILITY. THERE WAS NO EXCESSIVE ROLL BACK WITH FLEXION. THE TRIAL COMPONENTS WERE REMOVED. THEN A 72.5 FEMORAL COMPONENT AND 79 TIBIAL COMPONENT WITH A 10 POLYETHYLENE COMPONENT WERE CEMENTED INTO PLACE. ONCE THE CEMENT WAS HARD THE KNEE WAS TAKEN THROUGH A ROM AGAIN AND FOUND TO BE STABLE WITH NO PATELLA TILT NO EXCESSIVE ROLL BACK WITH FLEXION AND GOOD STABILITY WITH COMPLETE AND FULL EXTENSION. THE KNEE WAS IRRIGATED WITH STERILE BETADINE AND WATER FOR ABOUT 3 MINUTES. THE BLEEDERS WERE CAUTERIZED. THE ARTHROTOMY WAS REPAIRED WITH NUMBER 1 VICRYL. THE SUB CUTANEOUS LAYER WITH 2-0 VICRYL AND THE SKIN WITH 3-O STRATAFIX AND DERMABOND. THE WOUND WAS WASHED AND A STERILE DRESSING WAS FIDE LIED. PATIENT WAS EXTUBATED. Estimated Blood Loss -150.0 Pathology None sent Complications No immediate complications Condition Stable Disposition PACU
[2025-08-27] MEDS: LACTATED RINGERS 1,000 ML 30 ML IV CONT ×2 (13:37)
[2025-08-27] MEDS: fentaNYL CITRATE INJ (*CRX) 100 MCG/2 ML VIAL 25 MCG IV PUSH ×8 (13:40→14:00)
[2025-08-27] MEDS: KETOROLAC 15 MG/ML VIAL (*BKC) IV PUSH ×3 (13:47→23:39)
--- NOTE | 2025-08-27 14:35 | SUR.PHASEII ---
Patient offered meal tray at this time. Pt declined and stated he does not have much of an appetite and is satisfied with crackers and juice.
[2025-08-27] MEDS: oxyCODONE HCL (*CRX) 5 MG TAB IR PO (14:50)
[2025-08-27] MEDS: ONDANSETRON INJ 4 MG/2 ML VIAL IV PUSH ×2 (15:32→18:12)
--- NOTE | 2025-08-27 16:54 | ADMGEN ---
This patient, Travis Ponce, was admitted to [address] [place] [address] Room 300-01. Patient/family oriented to hospital policies and general routines including ID bracelet, bed and alarms, visiting hours, pain management, procedures, bathroom and other care routines, personal items, smoking policy, room service/diet, and visiting hours. Information on how to activate the Rapid Response Team has been discussed. Patient/Family are encouraged to report perceived risks to care and to ask questions if they do not understand what they are told or what they should do.
[2025-08-27] MEDS: SODIUM CHLORIDE 0.9% IV 1,000 ML 125 ML IV CONT (17:29)
[2025-08-27] MEDS: SENNA/DOCUSATE SODIUM TABLET 2 TAB PO (17:29)
[2025-08-27] MEDS: ZOLPIDEM TARTRATE (*CRX) 5 MG TABLET 10 MG PO (20:19)
[2025-08-27] MEDS: ASPIRIN 325 MG ENTERIC TABLET PO (20:19)
[2025-08-27] MEDS: ATORVASTATIN 20 MG TABLET PO (20:19)
[2025-08-27] MEDS: PANTOPRAZOLE 40 MG TABLET PO (20:19)
[2025-08-28 02:17] VITALS: BP 136/75; PULSE 89; RESP 16; TEMP 36.8; O2SAT 97
[2025-08-28] MEDS: ceFAZolin 2 GM in SODIUM CHLORIDE 0.9% IV 50 ML 100 ML IVPB ×2 (04:00→12:14)
[2025-08-28] MEDS: HYDROmorphone HCL INJ (*CRX) 1 MG/ML SYR IV PUSH (04:03)
[2025-08-28 05:47] VITALS: BP 127/76; PULSE 91; RESP 17; TEMP 36.8; O2SAT 96
[2025-08-28 06:35] LABS: Hematocrit 34.3 % (42.0-52.0); Hemoglobin 11.2 g/dL (14.0-18.0); Immature Granulocyte Percent A 0.5 % (0-0.5); Lymphocytes Absolute Auto 1.25 K/mm3 (0.9-3.2); Mean Corpuscular HGB Conc 32.7 g/dl (32-36); Mean Corpuscular Hemoglobin 31.5 pg (26-34); Mean Corpuscular Volume 96.3 fl (80-100); Nucleated Red Blood Cells Absolute Auto 0.000 K/mm3 (0.0-0.012); Nucleated Red Blood Cells Perc 0.0 % (0.0-0.2); Platelet Count Result 212 k/mm3 (150-375); Red Blood Count 3.56 M/mm3 (4.6-6.20); White Blood Count 11.4 K/mm3 (4.5-10.0)
[2025-08-28] MEDS: KETOROLAC 15 MG/ML VIAL (*BKC) IV PUSH ×2 (06:35→12:13)
[2025-08-28 06:47] LABS: Anion Gap 3 mmol/L (4-12); Blood Urea Nitrogen 11 mg/dL (9-20); Calcium 8.9 mg/dL (8.4-10.2); Carbon Dioxide 26 mmol/L (22-30); Chloride 105 mmol/L (98-107); Estimated CRCL calculation 101 ml/min; Estimated Glomerular Filt Rate > 60; Glucose 121 mg/dL (65-110); Potassium 4.3 mmol/L (3.4-5.0); Sodium 134 mmol/L (137-145)
[2025-08-28 07:44] VITALS: BP 111/65; PULSE 81; RESP 19; TEMP 36.4; O2SAT 94
[2025-08-28] MEDS: ASPIRIN 325 MG ENTERIC TABLET PO (08:57)
[2025-08-28] MEDS: SENNA/DOCUSATE SODIUM TABLET 2 TAB PO (08:57)
[2025-08-28] MEDS: oxyCODONE/ACETAMINOPHEN (*CRX) 5-325 MG TABLET 1 TABLET PO (09:01)
[2025-08-28 10:19] VITALS: BP 105/53; PULSE 85; RESP 18; TEMP 36.1; O2SAT 98
[2025-08-28 14:19] VITALS: BP 133/66; PULSE 84; RESP 18; TEMP 36.3; O2SAT 96
--- NOTE | 2025-08-28 16:21 | WPDPN ---
Progress Note: A&P Assessment and Plan (1) Left knee DJD: Code(s): M17.12 - Unilateral primary osteoarthritis, left knee Status: Acute Assessment and Plan: POD 1 DOING WELL. OK TO DC HOME F/U IN 3 WEEKS. Subjective Date/time seen: 08/28/25 16:21 Interval history: POD 1 DOING WELL. NO CALF PAIN Exam Extrem: Other: VSS AFEBRILE DRESSING DRY NV INTACT NEG HOMANS SIGN CALF AND THIGH SOFT NON TENDER Objective Data Vital Signs Vital Signs: Vital Signs - 24 hr 08/27/25 17:00 08/27/25 17:08 08/27/25 20:19 Temperature 35.7 C L Pulse Rate 82 Respiratory Rate 20 Blood Pressure 160/90 H Pulse Oximetry 98 98 Oxygen Delivery Room Air Room Air 08/27/25 22:19 08/28/25 02:17 08/28/25 05:47 Temperature 36.5 C 36.8 C 36.8 C Pulse Rate 96 89 91 Respiratory Rate 18 16 17 Blood Pressure 131/80 136/75 127/76 Pulse Oximetry 95 97 96 Oxygen Delivery 08/28/25 07:44 08/28/25 10:19 08/28/25 14:19 Temperature 36.4 C 36.1 C L 36.3 C L Pulse Rate 81 85 84 Respiratory Rate 19 18 18 Blood Pressure 111/65 105/53 L 133/66 Pulse Oximetry 94 98 96 Oxygen Delivery Intake/Output Intake/Output: Intake & Output 08/25/25 08/26/25 08/27/25 08/28/25 23:59 23:59 23:59 23:59 Intake Total 660 776 Output Total 950 Balance 660 -174 Meds/Results Medications: Active Medications Generic Name Dose Route Start Last Admin Trade Name Freq PRN Reason Stop Dose Admin Acetaminophen 500 mg 08/27/25 16:34 Acetaminophen 500 Mg Tablet PO Q6H PRN Pain Rated 1-3 Aspirin 325 mg 08/27/25 21:00 08/28/25 08:57 Aspirin 325 Mg Enteric Tablet PO 325 mg Q12HR PAT Administration Atorvastatin Calcium 20 mg 08/27/25 21:00 08/27/25 20:19 Atorvastatin 20 Mg Tablet PO 20 mg HS PAT Administration Diazepam 5 mg 08/27/25 16:34 Diazepam (*Crx) 5 Mg Tablet PO Q8H PRN Spasms Diphenhydramine HCl 25 mg 12/03/25 16:34 Diphenhydramine Hcl Inj 50 Mg/Ml Vial IV PUSH Q6H PRN Itching Hydromorphone HCl 1 mg 08/27/25 16:34 08/28/25 04:03 Hydromorphone Hcl Inj (*Crx) 1 Mg/Ml Syr IV PUSH 1 mg Q2H PRN Administration Breakthrough Pain Rated 7-10 or NPO Hydromorphone HCl 0.5 mg 08/27/25 16:34 Hydromorphone Hcl Inj (*Crx) 1 Mg/Ml Syr IV PUSH Q2H PRN Breakthrough Pain Rated 4-6 or NPO Ibuprofen 800 mg in 200 mls @ 400 mls/hr 08/27/25 16:34 Caldolor 800 Mg/200 Ml IVPB Q6H PRN Breakthrough Pain Rated 1-3 or NPO Ketorolac Tromethamine 15 mg 08/27/25 18:00 08/28/25 12:13 Ketorolac 15 Mg/Ml Vial (*Bkc) IV PUSH 08/28/25 18:01 15 mg Q6HR PAT Administration Lisinopril 40 mg 08/27/25 21:00 08/27/25 20:19 Lisinopril 20 Mg Tablet PO 40 mg HS PAT Administration Naloxone HCl 0.1 mg 08/27/25 16:34 Naloxone Hcl 0.4 Mg/Ml Vial IV PUSH Q2M PRN Opiate Reversal Ondansetron HCl 4 mg 08/27/25 16:34 08/27/25 18:12 Ondansetron Inj 4 Mg/2 Ml Vial IV PUSH 4 mg Q4H PRN Administration Nausea And Vomiting Oxycodone HCl 5 mg 08/27/25 16:34 Oxycodone Hcl (*Crx) 5 Mg Tab Ir PO ONCE PRN Pain Rated 7-10 Oxycodone/Acetaminophen 1 tablet 08/27/25 16:34 08/28/25 09:01 Oxycodone/Acetaminophen (*Crx) 5-325 Mg Tablet PO 1 tablet Q4H PRN Administration Pain Rated 4-6 Oxycodone/Acetaminophen 1 tab 08/27/25 16:34 Oxycodone/Acetaminophen (*Crx) 10-325 Mg Tablet PO Q6H PRN Pain Rated 7-10 Pantoprazole Sodium 40 mg 08/27/25 21:00 08/27/25 20:19 Pantoprazole 40 Mg Tablet PO 40 mg HS PAT Administration Polyethylene Glycol 17 gm 08/28/25 09:00 08/28/25 08:58 Polyethylene Glycol 3350 17 Gm Powd.Pack PO 17 gm QAM PAT Administration Senna/Docusate Sodium 2 tab 08/27/25 17:00 08/28/25 08:57 Senna/Docusate Sodium Tablet PO 2 tab BID PAT Administration Zolpidem Tartrate 10 mg 08/27/25 21:00 08/27/25 20:19 Zolpidem Tartrate (*Crx) 5 Mg Tablet PO 10 mg QHS PAT Administration Radiology Results: ITS Impressions Knee X-Ray 08/27/25 13:59 IMPRESSION: 1. Left total knee arthroplasty, negative for postoperative purposes. Labs Labs: Laboratory Results - last 24 hr 08/28/25 05:43 WBC 11.4 H RBC 3.56 L Hgb 11.2 L D Hct 34.3 L MCV 96.3 MCH 31.5 MCHC 32.7 RDW 12.9 Plt Count 212 MPV 12.2 H Immature Gran % (Auto) 0.5 Neut % (Auto) 73.3 H Lymph % (Auto) 11.0 L [place] % (Auto) 14.7 H Eos % (Auto) 0.1 Baso % (Auto) 0.4 Lymph # (Auto) 1.25 [place] # (Auto) 1.7 H Eos # (Auto) 0.0 Baso # (Auto) 0.0 Abs Immat Gran (auto) 0.06 H Absolute Neuts (auto) 8.3 H Absolute Nucleated RBC 0.000 Nucleated RBC % 0.0 Sodium 134 L Potassium 4.3 Chloride 105 Carbon Dioxide 26 Anion Gap 3 L BUN 11 D Creatinine 0.82 Estim Creat Clear Calc 101 Estimated GFR > 60 Glucose 121 H Calcium 8.9
== END 2025-08-28 17:15 | disposition home health service (06) ==
LOC: ANHSURGERY 11:33 → ANH3MEDSUR 16:53
PROVIDERS: PCP Internal Medicine; Visit Provider Orthopaedic Surgery
PROC: (CPT 27447; principal; 2025-08-27 10:30)
DX: M17.12 Unilateral primary osteoarthritis, left knee (principal); G89.18 Other acute postprocedural pain; F17.290 Nicotine dependence, other tobacco product, uncomplicated; F12.90 Cannabis use, unspecified, uncomplicated; E66.9 Obesity, unspecified; Z68.33 Body mass index [BMI] 33.0-33.9, adult
CPT/HCPCS: 27447; 64447; 36415; 73560; 80048; 85025; 86850; 86900; 86901; 97110; 97161; 97166; 97530; 97535; J0690; A9270; C1713; C1776; J0166; J1100; J1171; J1885; J2003; J2250; J2270; J2405; J2704; J2795; J3010; J3290; J3373; J7030; J7120